=== PATIENT | male | born 1970 | race Caucasian/White ===

== ENCOUNTER 2023-09-03 21:41 | Inpatient (IN) | payer OTHER ==
[2023-09-03] MEDS ORDERED: ACETAMINOPHEN INJECTION 100 ML IVPB ONE (23:32)
[2023-09-03] MEDS: ACETAMINOPHEN 1000 MG/100 ML BAG IVPB ONE (23:41)
[2023-09-03 23:45] LABS: BASO % 0.8 % (0-2.0); EOS % 1.5 % (0-4.5); HEMATOCRIT 37.8 % (35.4-49); HEMOGLOBIN 12.6 GM/dL (11.7-16.9); LYMPH % 23.5 % (8-40); MCH 26.4 pg (25.7-33.7); MCHC 33.4 g/dl (32.0-35.9); MEAN CELL VOLUME 79.1 fl (80-96); MEAN PLT VOLUME 8.2 fl (7.5-11.1); NEUT % 63.2 % (42.8-82.8); PLATELET COUNT 186 10^3/uL (134-434); RBC 4.77 M/mm3 (4.00-5.60); RDW 14.6 % (11.9-15.9); WHITE BLOOD COUNT 9.7 K/mm3 (4.0-10.0)
[2023-09-03 23:50] LABS: INR 1.1 (0.83-1.09); PROTHROMBIN TIME (PATIENT) 12.4 SEC (9.7-13.0)
[2023-09-03 23:53] LABS: ACTIVATED PTT 31.3 SECONDS (25.2-36.5)
[2023-09-04 00:08] LABS: POTASSIUM 4.2 mmol/L (3.5-5.1)
[2023-09-04 00:11] LABS: ALBUMIN 3.3 g/dl (3.4-5.0); BLOOD UREA NITROGEN 11.4 mg/dL (7-18)
[2023-09-04 00:14] LABS: CREATININE 0.7 mg/dL (0.55-1.3)
[2023-09-04 00:16] LABS: BILIRUBIN,TOTAL 0.4 mg/dL (0.2-1); TOT PROT 7.3 g/dl (6.4-8.2)
[2023-09-04] MEDS ORDERED: CIPROFLOXACIN 400 MG/D5W 400 MG/200 ML IVPB IVPB ONE (01:22)
[2023-09-04] MEDS: LACTATED RINGERS SOLUTION 1,000 ML/1,000 ML INFUS.BAG IV SCH (04:05)
[2023-09-04] MEDS: INSULIN ASPART SLIDING SCALE (NOVOLOG) 1 VIAL SQ SCH (06:23)
[2023-09-04 10:07] LABS: BASO % 0.3 % (0-2.0); EOS % 1.4 % (0-4.5); HEMOGLOBIN 12.9 GM/dL (11.7-16.9); LYMPH % 24.4 % (8-40); MCH 26.6 pg (25.7-33.7); MCHC 33.9 g/dl (32.0-35.9); MEAN CELL VOLUME 78.5 fl (80-96); MEAN PLT VOLUME 8.7 fl (7.5-11.1); MONO % 9.8 % (3.8-10.2); NEUT % 64.1 % (42.8-82.8); PLATELET COUNT 186 10^3/uL (134-434); RBC 4.84 M/mm3 (4.00-5.60); RDW 14.6 % (11.9-15.9); WHITE BLOOD COUNT 8.7 K/mm3 (4.0-10.0)
[2023-09-04 10:18] LABS: CALCIUM 8.9 mg/dL (8.5-10.1); MAGNESIUM 2.1 mg/dL (1.8-2.4)
[2023-09-04 10:20] LABS: ALBUMIN 3.4 g/dl (3.4-5.0); BLOOD UREA NITROGEN 9.2 mg/dL (7-18)
[2023-09-04 10:21] LABS: CREATININE 0.6 mg/dL (0.55-1.3)
[2023-09-04 10:23] LABS: PHOSPHOROUS 3.8 mg/dL (2.5-4.9)
[2023-09-04 10:26] LABS: BILIRUBIN,TOTAL 0.6 mg/dL (0.2-1)
[2023-09-04] MEDS ORDERED: LIDOCAINE HCL 1%, 10 MG/ML (20ML VIAL) ONE (14:42)
[2023-09-04] MEDS: LIDOCAINE HCL 2% (20ML MULTI-DOSE VIAL) SQ ONE (15:11)
[2023-09-04] MEDS ORDERED: ACETAMINOPHEN INJECTION 100 ML IVPB ONE (15:48)
[2023-09-04] MEDS: ACETAMINOPHEN 500 MG TABLET (FP) PO ONE (16:02)
[2023-09-04 16:34] LABS: URINE APPEARANCE CLEAR; URINE BILIRUBIN NEGATIVE (NEGATIVE); URINE COLOR YELLOW; URINE GLUCOSE (UA) 3+ (NEGATIVE); URINE KETONE NEGATIVE (NEGATIVE); URINE LEUK ESTERASE NEGATIVE (NEGATIVE); URINE NITRITE NEGATIVE (NEGATIVE); URINE PROTEIN NEGATIVE (NEGATIVE); URINE UROBILINOGEN 0.2 mg/dL (0.2-1.0)
[2023-09-04] MEDS: ACETAMINOPHEN 1000 MG/100 ML BAG IVPB PRN (17:00)
[2023-09-04] MEDS: metFORMIN HCL 500 MG TABLET (FP) PO SCH (17:45)
[2023-09-04] MEDS: ATORVASTATIN CA 40 MG TABLET (FP) PO SCH (21:22)
[2023-09-05 02:43] VITALS: RESP 18
[2023-09-05] MEDS: glipiZIDE 5 MG TABLET (FP) PO SCH (06:13)
[2023-09-05 08:50] VITALS: PULSE 65
[2023-09-05] MEDS: ASPIRIN COATED 81 MG TABLET.EC PO SCH (10:00)
[2023-09-05] MEDS: LISINOPRIL 5 MG TABLET PO SCH (10:01)
[2023-09-05 10:42] LABS: BASO % 0.5 % (0-2.0); EOS % 1.7 % (0-4.5); HEMATOCRIT 38.8 % (35.4-49); HEMOGLOBIN 13.1 GM/dL (11.7-16.9); LYMPH % 29.8 % (8-40); MCH 26.7 pg (25.7-33.7); MCHC 33.7 g/dl (32.0-35.9); MEAN CELL VOLUME 79.3 fl (80-96); MEAN PLT VOLUME 8.8 fl (7.5-11.1); MONO % 8.2 % (3.8-10.2); NEUT % 59.8 % (42.8-82.8); PLATELET COUNT 200 10^3/uL (134-434); RBC 4.89 M/mm3 (4.00-5.60); RDW 14.6 % (11.9-15.9); WHITE BLOOD COUNT 7.9 K/mm3 (4.0-10.0)
[2023-09-05 11:05] LABS: BLOOD UREA NITROGEN 11.2 mg/dL (7-18); CALCIUM 8.7 mg/dL (8.5-10.1); MAGNESIUM 2.1 mg/dL (1.8-2.4)
[2023-09-05 11:06] LABS: ALBUMIN 3.1 g/dl (3.4-5.0)
[2023-09-05 11:08] LABS: PHOSPHOROUS 3.2 mg/dL (2.5-4.9)
[2023-09-05 11:09] LABS: BILIRUBIN,TOTAL 0.5 mg/dL (0.2-1); TOT PROT 6.9 g/dl (6.4-8.2)
[2023-09-05 11:10] LABS: CREATININE 0.6 mg/dL (0.55-1.3)
[2023-09-05 13:24] VITALS: BP 114/63; TEMP 98.6
[2023-09-05] MEDS ORDERED: metFORMIN HCL 500 MG TABLET (FP) PO SCH (17:00)
[2023-09-05] MEDS ORDERED: glipiZIDE 5 MG TABLET (FP) PO SCH (17:00)
== END 2023-09-05 18:19 | disposition home or self-care (01) | DRG 226 ==
LOC: JERFT 21:41 → JERBED 09-04 02:40 → OBSVTOIN 09-04 05:15 → J7W 09-04 05:58
PROVIDERS: ADMIT Internal Medicine; ATTEND Internal Medicine
PROC: 0D9Q0ZZ Drainage of Anus, Open Approach (ICD-10-PCS; principal; 2023-09-04)
PROC: 0Y903ZZ Drainage of Right Buttock, Percutaneous Approach (ICD-10-PCS; 2023-09-04)
DX: K61.0 Anal abscess (principal); E11.65 Type 2 diabetes mellitus with hyperglycemia; E78.5 Hyperlipidemia, unspecified; R10.2 Pelvic and perineal pain
CPT/HCPCS: 36415; 72193-TC; 80053; 80061; 81003; 82962; 83036; 83735; 84100; 85025; 85610; 85730; 86850; 86900; 86901; 87070; 87077; 87186; 87205; 93005; 93010; 99285-25; G0378; J0131; Q9967